=== PATIENT | female | born 1975 | race Caucasian/White ===

== ENCOUNTER 2019-11-20 23:29 | Emergency (ER) | payer OTHER ==
[~2019-11-20] VITALS: Ht 165.1 cm; Wt 83.0 kg
[2019-11-20] MEDS ORDERED: CELEXA 20 MG TA20 MG PO (23:37)
[2019-11-20 23:53] LABS: ABSOLUTE BASOPHILS 0.1 thou/uL (0.0-0.2); ABSOLUTE EOSINOPHILS 0.2 thou/uL (0.0-0.7); ABSOLUTE LYMPHOCYTES 3.2 thou/uL (0.8-5.3); ABSOLUTE MONOCYTES 0.7 thou/uL (0.0-1.2); ABSOLUTE NEUTROPHILS 4.8 thou/uL (1.6-8.1); BASOPHILS 1.1 %; HEMATOCRIT 38.1 % (37.0-47.0); HEMOGLOBIN 12.8 gm/dL (12.0-15.0); LYMPHOCYTES 35.5 %; MCH 27.7 pg (26.0-34.0); MCHC 33.7 g/dL (28.0-37.0); MCV 82.4 fL (80.0-100.0); MONOCYTES 7.8 %; MPV 8.2 fl. (7.2-11.1); NUCLEATED RBCS 0 /100WBC; PLATELET COUNT* 244 thou/uL (150-400); POLYS 53.6 %; RBC 4.62 mil/uL (4.20-5.00); RDW-CV 14.3 % (10.5-14.5)
[2019-11-20 23:58] LABS: CALCIUM 9.5 mg/dL (8.5-10.1); CREATININE 0.9 mg/dL (0.6-1.3); POTASSIUM 3.6 mmol/L (3.5-5.1)
[2019-11-21 00:08] LABS: MAGNESIUM 1.6 mg/dL (1.8-2.4); TOTAL BILIRUBIN 0.3 mg/dL (<0.1-1.0); TOTAL PROTEIN 7.9 g/dL (6.4-8.2)
[2019-11-21] MEDS ORDERED: NORCO 5-325 TA1 EAC1 PO (02:50)
[2019-11-21 03:04] VITALS: BP 96/52
--- NOTE | 2019-11-23 08:33 | EKG ---
[place] [address] ELECTROCARDIOGRAM REPORT Name: WANDASRINATH CANDELARIO Room: [facility]#: [id number] Admission: 11/20/19 Attend Phys: Discharge: 11/21/19 Date of : 79 Report #: [id number] THIS REPORT FOR: //name// [facility] ED Test Date: 2019-11-20 Test Time: 23:33:12 Pat Name: SRINATH MUÑOZ Department: Room: Gender: F Lead Custodian: : 1975 Requested By: Bobby Marcelino Order Number: [id number] MD: Roberto Paulson Measurements Intervals [place] Rate: 93 P: 44 [place]: 185 QRS: 54 QRSD: 101 T: 68 QT: 407 QTc: 507 Interpretive Statements Sinus rhythm Probable left atrial enlargement Minimal ST depression, inferior leads Borderline prolonged QT interval No previous ECG available for comparison Electronically Signed On 11-23-2019 8:33:00 YIELD CLERK by Roberto Paulson [email or web address] <ELECTRONICALLY SIGNED> By: Roberto Paulson MD, [facility] 11/23/19 0833 [id number] 32 Roberto Paulson MD, FACC /EPI
--- NOTE | 2019-11-23 08:34 | EKG ---
[place] [address] ELECTROCARDIOGRAM REPORT Name: SRINATH MUÑOZ Room: [facility]#: [id number] Admission: 11/20/19 Attend Phys: Discharge: 11/21/19 Date of : 79 Report #: [id number] THIS REPORT FOR: //name// [facility] ED Test Date: 2019-11-21 Test Time: 02:24:17 Pat Name: SRINATH MUÑOZ Department: Room: Gender: F Home Care Specialist: : 1975 Requested By: Bobby Marcelino Order Number: [id number] MD: Roberto Paulson Measurements Intervals [place] Rate: 71 P: 32 [place]: 181 QRS: 38 QRSD: 86 T: 77 QT: 443 QTc: 482 Interpretive Statements Sinus rhythm Nonspecific T abnrm, anterolateral leads Electronically Signed On 11-23-2019 8:34:15 [employer]ING [employer]ESS OPERATOR by Roberto Paulson [email or web address] <ELECTRONICALLY SIGNED> By: Roberto Paulson MD, [facility] 11/23/19 0834 0224 0224 Roberto Paulson MD, FACC /EPI
== END 2019-11-21 03:05 | disposition home or self-care (01) ==
LOC: M.ERS 23:29
PROVIDERS: Emergency Medicine Emergency Medical Services
DX: R07.89 Other chest pain (principal); R09.1 Pleurisy; M25.511 Pain in right shoulder; R06.02 Shortness of breath; F41.9 Anxiety disorder, unspecified; F17.210 Nicotine dependence, cigarettes, uncomplicated